=== PATIENT | female | born 1965 | race Caucasian/White ===

== ENCOUNTER 2020-05-09 07:19 | Outpatient (CLI) | payer OTHER, SELFPAY ==
--- NOTE | 2020-05-09 07:26 | MM_ITS ---
WS: [id number] BILATERAL SCREENING DIGITAL MAMMOGRAM WITH CAD HISTORY: SCREENING COMPARISON: 06/03/2018, 05/22/2017, 05/12/2016 Bilateral CC and MLO views submitted. Computer aided detection analyzed. Breast composition: There are scattered areas of fibroglandular density. No suspicious masses, microc alcifications or architectural distortion. Long-term stability of a partially obscured mass measuring 11 mm in the RIGHT breast near 10-11 o'clock. This mass has been previously described on prior studi es dating back to 05/22/2017 without increase in size. Benign calcifications bilaterally in each breast . MM/[id number] IMPRESSION: BI-RADS: 2-Benign FOLLOW UP: 1 Year Follow-up
== END 2020-05-09 07:20 | disposition home or self-care (01) ==
LOC: RADSHAW 07:23
PROVIDERS: PCP Family Medicine; Visit Provider Nurse Practitioner Women's Health
DX: Z12.31 Encounter for screening mammogram for malignant neoplasm of breast (principal)
CPT/HCPCS: 77067

== ENCOUNTER → 2021-07-05 08:25 | Outpatient (BNVA) | payer OTHER, SELFPAY | PROVIDERS: PCP Family Medicine; Visit Provider Obstetrics & Gynecology | DX: N88.8 Other specified noninflammatory disorders of cervix uteri (principal); Z20.822 Contact with and (suspected) exposure to COVID-19 | CPT/HCPCS: 87635 ==

== ENCOUNTER 2021-07-10 09:11 | Day surgery (SDC) | payer OTHER, SELFPAY ==
[2021-07-08 09:42] VITALS: BMI 31.3
--- NOTE | 2021-07-08 10:14 | ANES.PREANE2 ---
Pre-Anesthetic Assessment Pre-Anesthetic Assessment: Height/Weight: Height 1.7 m Weight 90.718 kg Proposed Procedure: Operation Date: 07/10/21 10:40 Proposed Procedures p Cervical polypectomy 74743 n88.8(Not Applicable) - Alberto Mejias MD Was Beta Chelsey taken within 24 hours: N/A Was Clonidine taken within 24 hours: N/A Social: Social History: No tobacco Exam: Pre-Anes Outpt Exam: alert, oriented x 3, clear to auscultation bilaterally and regular rate & rhythm Airway: Submandibular: WNL Cervical ROM: WNL MP: 2 History/ROS: No significant history except as noted and No significant complaints Anesthetic Plan: ASA status: 1 Anesthesia: Anesthesia Evaluation and General Risk of > 500 ml blood loss (7ml/kg in children): No PFSH Anesthesia PFSH: Medical History Cervical polyp (~2014) No pertinent past medical history neghx:htn,dm,thyroid,dvt/pe Surgical History H/O breast biopsy (2011) Left--Benign H/O section --1989 10--1992 3--2002-- delivery H/O tubal ligation (~2002) at the same time as the last section History of cholecystectomy (2005) Family History Other Adopted Female Reproductive History: Date of last menstrual period: 07/08/21 Data Anesthesia Cardiac Studies: No Data to Display
[2021-07-08 10:25] LABS: OR HCG Qualitative Urine Negative (Negative)
[2021-07-10 09:26] VITALS: BP 170/81; PULSE 85; RESP 17; TEMP 36.6; O2SAT 99
[2021-07-10] MEDS: sodium chloride 0.9% 500 ML IV (09:49)
[2021-07-10] MEDS: sodium chloride 0.9% 1,000 ML 30 ML IV (09:50)
[2021-07-10 09:56] LABS: Add Urine Microscopic? YES; Bilirubin Urine Neg (Negative); Blood Urine 3+ (Negative); Glucose Urine UA Norm (Normal); Ketones Urine Negative (Negative); Leukocyte Esterase Urine Trace (Negative); Nitrate Urine Negative (Negative); Protein Urine Neg (Negative); Specific Gravity, Urine 1.015 (1.005-1.030); Urine Appearance Clear (CLEAR); Urine Color Yellow (Yellow); Urobilinogen Urine Norm (Negative); pH Urine 5 (5-7)
[2021-07-10 10:05] LABS: RBC Urine 25-40 /hpf (0-2); Squamous Epithelial Cell Urine 0-4 /hpf (0-5)
[2021-07-10 10:06] LABS: Add Urine Culture? Yes; Bacteria Urine 1+ /hpf
[2021-07-10 10:11] LABS: Basophils # 0.1 10^3/uL (0.0-0.1); Basophils % 0.9 %; Eosinophils # 0.1 10^3/uL (0.0-0.8); Eosinophils % 0.9 %; Hematocrit 46.6 % (37.0-47.0); Hemoglobin 14.8 g/dL (11.5-15.3); Lymphocytes # 1.6 10^3/uL (0.8-4.8); Lymphocytes % 28.4 %; Mean Corpuscular HGB Conc 31.8 g/dL (30.0-36.0); Mean Corpuscular Hemoglobin 28.8 pg (28.0-34.0); Mean Corpuscular Volume 90.7 fl (81-99); Mean Platelet Volume 10.9 fL (7.4-10.4); Monocytes # 0.4 10^3/uL (0.2-0.9); Monocytes % 7.3 %; Neutrophils # 3.59 10^3/uL (1.8-7.7); Neutrophils % 62.5 %; Nucleated Red Blood Cells % 0 %; Platelet Count 279 10^3/cmm (130-400); Red Blood Count 5.14 10^6/uL (4.1-5.3); Red Cell Distribution Width 12.8 % (12.1-15.1); White Blood Count 5.7 10^3/uL (4.0-10.0)
--- NOTE | 2021-07-10 10:20 | W.PM.OPSUD ---
Surgery/Procedure H&P Update DATE OF PROCEDURE: July 10, 2021 DATE H&P PERFORMED: 07/08/21 H&P UPDATE INFORMATION: I have reviewed H&P completed within last 30 days, I have examined patient prior to procedure and No changes to prior documentation PREOP DIAGNOSIS: Cervical mass/cervical polyp PLANNED PROCEDURE: Operation Date: 07/10/21 10:40 Proposed Procedures p Cervical polypectomy 12454 n88.8(Not Applicable) - Alberto Mejias MD
[2021-07-10 10:22] LABS: Alanine Aminotransferase 13 U/L (0-33); Albumin Level 4.2 g/dL (3.5-5.2); Alkaline Phosphatase 98 IU/L (35-105); Anion Gap 15.7 (5-19); Aspartate Amino Transferase 15 U/L (0-32); Blood Urea Nitrogen 11 mg/dL (6-20); Calcium 9.2 mg/dL (8.5-10.5); Carbon Dioxide 26 mmol/L (22-29); Chloride 104 mmol/L (98-107); Globulin 3.5 g/dL (1.3-4.6); Glomerular Filtration Rate 103.4 mL/min (90-130); Glucose 84 mg/dL (65-115); Osmolality Calculated 293 mOsm/kg (285-295); Potassium 3.7 mmol/L (3.5-5.1); Sodium 142 mmol/L (136-145); Total Bilirubin 0.6 mg/dL (0.15-1.2); Total Protein 7.7 g/dL (6.6-8.7)
--- NOTE | 2021-07-10 10:48 | ANES.PAUD2 ---
Pre-Anesthetic Update Pre-Anesthetic Assessment: Date of Surgery/Procedure: 07/10/21 Preop Diagnosis: Cervical mass/cervical polyp Proposed Procedure: Operation Date: 07/10/21 10:40 Proposed Procedures p Cervical polypectomy 05632 n88.8(Not Applicable) - Alberto Mejias MD Any changes to Pre-Anesthetic Assessment?: No Last Intake: Intake Last Liquid Date 07/09/21 Last Liquid Time 21:00 Last Solid Date 07/09/21 Last Solid Time 19:00 Labs Last 48hrs: Laboratory Results - last 48 hr 07/10/21 07/10/21 07/10/21 09:30 09:45 09:45 WBC 5.7 RBC 5.14 Hgb 14.8 Hct 46.6 MCV 90.7 MCH 28.8 MCHC 31.8 RDW 12.8 Plt Count 279 MPV 10.9 H Neut % (Auto) 62.5 Lymph % (Auto) 28.4 [place] % (Auto) 7.3 Eos % (Auto) 0.9 Baso % (Auto) 0.9 Neut # (Auto) 3.59 Lymph # (Auto) 1.6 [place] # (Auto) 0.4 Eos # (Auto) 0.1 Baso # (Auto) 0.1 Nucleated RBC % (a uto) 0 Nucleated RBCs # 0.0 Sodium 142 Potassium 3.7 Chloride 104 Carbon Dioxide 26 Anion Gap 15.7 BUN 11 Creatinine 0.6 GFR Calculation 103.4 Glucose 84 Calculated Osmolal ity 293 Calcium 9.2 Total Bilirubin 0.6 AST 15 ALT 13 Alkaline Phosphata se 98 Total Protein 7.7 Albumin 4.2 Globulin 3.5 Urine Color Yellow Urine Appearance Clear Urine pH 5 Ur Specific Gravit y 1.015 Urine Protein Neg Urine Glucose (UA) Norm Urine Ketones Negative Urine Blood 3+ H Urine Nitrate Negative Urine Bilirubin Neg Urine Urobilinogen Norm Ur Leukocyte Yisel ase Trace H Urine RBC 25-40 H Urine WBC 5-10 H Ur Squamous Epith Cells 0-4 H Amorphous Sediment Not Reportable Urine Bacteria 1+ H Vitals: Temperature 98 F 07/10/21 09:26 Temperature Source Temporal Artery S can 07/10/21 09:26 Pulse Rate 85 07/10/21 09:26 Pulse Rhythm 07/10/21 09:38 Pulse Strength 3+ Normal 07/10/21 09:38 Respiratory Rate 17 07/10/21 09:26 Blood Pressure 170/81 07/10/21 09:26 Blood Pressure Lesly n 110 07/10/21 09:26 Pulse Oximetry 99 07/10/21 09:26 Oxygen Delivery Me thod 07/10/21 09:38 Exam: Pre-Anes Outpt Exam: alert, oriented x 3, clear to auscultation bilaterally and regular rate & rhythm Cardiac Studies: No Data to Display
--- NOTE | 2021-07-10 11:14 | PM.OP ---
Operative Report Date of procedure: July 10, 2021 Pre-op Diagnosis: Cervical mass/cervical polyp Post-op diagnosis: same Procedure Done: Cervical polypectomy Specimens removed/disposition: Endocervical polyp Pathology: Endocervical polyp Surgeon: Alberto Mejias MD Anesthesia: General Estimated blood loss (mL): 258 IV fluids (mL): 500 Urine output (mL): 50 Complications: None Condition: stable Disposition: PACU Procedure: The patient was brought to the Operating Room with an IV in place. Anesthetic was administered and she was placed in the lithotomy position. The patient was prepped and draped after which a weighted speculum was placed in the vagina and a tenaculum was placed on the cervix for traction. Angle stitches of 0 Vicryl sutures were placed at 3 o'clock and 9 o'clock in the lateral vagina fornices. The cervical polyp was grasp with firceps and a scalpel was used to excise a cone shaped circumferentially around the polyp. The specimen was removed intact and sent to pathology. The polyp biopsy site was sutured using a running lock stitch of 0 Vicryl suture. Upon completion of the suture placement, the endocervical canal was sounded to assure patency. Good hemostasis was noted. The patient was awakened from her anesthetic and taken to the post anesthesia care unit in stable condition. Final sponge, needle, and instrument counts were correct x3.
[2021-07-10 11:19] VITALS: BP 106/52; PULSE 93; RESP 16; TEMP 36.6; O2SAT 96
[2021-07-10 11:25] VITALS: BP 115/53; PULSE 91; RESP 16; O2SAT 95
[2021-07-10 11:30] VITALS: BP 104/58; PULSE 88; RESP 16; TEMP 36.3; O2SAT 95
[2021-07-10 11:31] VITALS: BP 104/65; PULSE 82; RESP 16; TEMP 36.3; O2SAT 98
[2021-07-10 11:45] VITALS: BP 104/65; PULSE 79; RESP 16; O2SAT 99
--- NOTE | 2021-07-10 15:47 | ANE.PACU2 ---
Inpatient post-anesthesia follow up: Airway intact: Yes Vital signs: Temperature 97.3 F Pulse Rate 79 Respiratory Rate 16 Blood Pressure 104/65 Pulse Oximetry 99 Oxygen Delivery Me thod Room Air Oxygen Flow Rate Fraction of Inspir ed Oxygen Hydration adequate: Yes Nausea and vomiting: No Pain level: 2 Mental status: Baseline
== END 2021-07-10 12:00 | disposition home or self-care (01) ==
PROVIDERS: Anesthesiology; PCP Family Medicine; Visit Provider Obstetrics & Gynecology
PROC: 0UDB8ZZ Extraction of Endometrium, Via Natural or Artificial Opening Endoscopic (ICD-10-PCS; CPT 58558; principal; 2021-07-10 10:30)
DX: N84.1 Polyp of cervix uteri (principal)
CPT/HCPCS: 57500; 80053; 81001; 81025; 84703; 85025; 86850; 86900; 87086; 88305; 96365; J0690; J1885; J2250; J2405; J2704; J3010; J7030; J7040

== ENCOUNTER 2021-07-12 07:12 | Outpatient (CLI) | payer OTHER, SELFPAY ==
--- NOTE | 2021-07-12 | MM_ITS ---
WS: [id number] Exam: [id number] Date/Time of Exam: 07/12/2021 12:00 AM Reason For Exam: SCREEN VIEWS: MLO and CC views both breasts. Comparison made with prior exam of 05/14/2017, 06/03/2018 and 05/09/2020. Findings: There was no sign of mass, architectural distortion or suspicious calcification in either breast. Sta ble appearing nodular and fibroglandular densities in both breasts.Scattered fibroglandular densities MM/[place] [id number] Impression: BI-RADS: 2-Benign FOLLOW-UP: 1 Year Follow-up This mammogram was also analyzed by the Computer Aided Detection System R2 Imag [employer]ting [employer].
== END 2021-07-12 07:13 | disposition home or self-care (01) ==
LOC: RADSHAW 07:14
PROVIDERS: PCP Family Medicine; Visit Provider Nurse Practitioner Women's Health
DX: Z12.31 Encounter for screening mammogram for malignant neoplasm of breast (principal)
CPT/HCPCS: 77067

== ENCOUNTER → 2022-05-20 09:13 | Outpatient (BNVA) | payer OTHER, SELFPAY | PROVIDERS: PCP Family Medicine; Visit Provider Nurse Practitioner Women's Health | DX: Z01.419 Encounter for gynecological examination (general) (routine) without abnormal findings (principal); N92.4 Excessive bleeding in the premenopausal period; N91.4 Secondary oligomenorrhea | CPT/HCPCS: 87624 ==

== ENCOUNTER 2022-07-16 07:31 | Outpatient (CLI) | payer OTHER, SELFPAY ==
--- NOTE | 2022-07-16 07:35 | MM_ITS ---
WS: [id number] BILATERAL SCREENING DIGITAL TOMOSYNTHESIS MAMMOGRAM WITH CAD HISTORY: Z12.39 - Encounter for other screening for malignant neoplasm... COMPARISON: 06/03/2018, 05/09/2020, 07/12/2021 Bilateral CC and MLO views with tomosynthesis and synthetic mammography submitted. Computer aided det ection analyzed. Breast composition: There are scattered areas of fibroglandular density. No suspicious masses, microc alcifications or architectural distortion. Ovoid mass in the central RIGHT breast measures 11 mm. Thi s mass was present in 2018 with no increase in size. This mass was described as a cyst on a prior ult rasound. There are additional benign calcifications in each breast. MM/[place] [id number] IMPRESSION: BI-RADS: 2-Benign FOLLOW UP: 1 Year Follow-up
== END 2022-07-16 07:32 | disposition home or self-care (01) ==
PROVIDERS: PCP Family Medicine; Visit Provider Nurse Practitioner Women's Health
DX: Z12.31 Encounter for screening mammogram for malignant neoplasm of breast (principal)
CPT/HCPCS: 77063; 77067

== ENCOUNTER 2023-07-17 08:19 | Outpatient (CLI) | payer OTHER, SELFPAY ==
--- NOTE | 2023-07-17 09:10 | MM_ITS ---
WS: [id number] BILATERAL SCREENING DIGITAL TOMOSYNTHESIS MAMMOGRAM WITH CAD HISTORY: SCREENING COMPARISON: 07/16/2022, 07/12/2021 and 05/09/2020 Bilateral CC and MLO views with tomosynthesis and synthetic mammography submitted. Computer aided det ection analyzed. Breast composition: There are scattered areas of fibroglandular density. No suspicious masses, microc alcifications or architectural distortion. 10 mm nodule noted in the central RIGHT breast at a middle depth has been present on multiple prior exams with no increase in size. Benign bilateral calcificat ions. IMPRESSION: MM/[place] [id number] BI-RADS: 2-Benign FOLLOW UP: 1 Year Follow-up
== END 2023-07-17 08:20 | disposition home or self-care (01) ==
LOC: RAD 08:19
PROVIDERS: PCP Family Medicine; Visit Provider Nurse Practitioner Women's Health
DX: Z12.31 Encounter for screening mammogram for malignant neoplasm of breast (principal)
CPT/HCPCS: 77063; 77067

== ENCOUNTER 2024-08-04 09:09 | Outpatient (CLI) | payer OTHER, SELFPAY ==
--- NOTE | 2024-08-04 09:14 | MM_ITS ---
WS: [id number] BILATERAL SCREENING DIGITAL TOMOSYNTHESIS MAMMOGRAM WITH CAD HISTORY: SCREENING COMPARISON: 07/17/2023, 07/16/2022 and 07/12/2021 Bilateral CC and MLO views with tomosynthesis and synthetic mammography submitted. Computer aided det ection analyzed. Breast composition: There are scattered areas of fibroglandular density. No suspicious masses, microc alcifications or architectural distortion. Long-term stability of a 10 mm partial obscured mass centr al subareolar RIGHT breast. There are additional scattered calcifications which are benign. MM/MM [facility] tomosynthesis [id number] IMPRESSION: BI-RADS: 2 - Benign. FOLLOW UP: 1 Year Follow-up
== END 2024-08-04 09:10 | disposition home or self-care (01) ==
LOC: RAD 09:09
PROVIDERS: PCP Family Medicine; Visit Provider Obstetrics & Gynecology
DX: Z12.31 Encounter for screening mammogram for malignant neoplasm of breast (principal)
CPT/HCPCS: 77063; 77067

== ENCOUNTER 2025-08-14 07:39 | Outpatient (CLI) | payer OTHER, SELFPAY ==
--- NOTE | 2025-08-14 07:44 | MM_ITS ---
WS: [id number] BILATERAL SCREENING DIGITAL TOMOSYNTHESIS MAMMOGRAM WITH CAD HISTORY: SCREENING COMPARISON: 08/04/2024, 07/17/2023, 05/09/2020 and 07/16/2022 Bilateral CC and MLO views with tomosynthesis and synthetic mammography submitted. Computer aided detection analyzed. Breast composition: The breasts are heterogeneously dense, which may obscure small masses. No suspicious masses, microcalcifications or architectural distortion. Dense asymmetries in the RIGHT breast. Asymmetries are stable over multiple prior years. Benign calcifications in each breast. MM/MM scr tomosynthesis [id number] IMPRESSION: BI-RADS: 2 - Benign FOLLOW UP: 1 Year Follow-up
== END 2025-08-14 07:40 | disposition home or self-care (01) ==
LOC: RAD 07:41
PROVIDERS: PCP Family Medicine; Visit Provider Family Medicine
DX: Z12.31 Encounter for screening mammogram for malignant neoplasm of breast (principal); R92.333 Mammographic heterogeneous density, bilateral breasts; N64.89 Other specified disorders of breast; R92.1 Mammographic calcification found on diagnostic imaging of breast
CPT/HCPCS: 77063; 77067